=== PATIENT | male | born 1990 ===

== ENCOUNTER 2017-09-06 07:38 | Inpatient (IN) | payer OTHER ==
[2017-09-06] MEDS ORDERED: Sodium Chloride 0.9% 1,000 ML IV STA ×2 (08:21→08:39)
--- NOTE | 2017-09-06 08:28 | ED PDOC ---
Hyperglycemia/Hypoglycemia Time Seen by Provider: 09/06/17 07:46 Chief Complaint (Nursing): High Blood Sugar Chief Complaint (Provider): High blood sugar History Per: Patient History/Exam Limitations: no limitations Onset/Duration Of Symptoms: Days (today) : The patient does not have any of the infectious symptoms listed except for those marked. Additional Complaint(s): Pt. woke up and saw that his blood sugar was high. Took insulin at home and came the ER. Has light-headedness, weakness all over, urinating frequently, nausea, nonbloody vomiting. No chest pain. Dyspnea mild from the nausea/ vomiting. No headaches. Mild abd pain upper. No back pain. No diarrhea. Denies any drugs, alcohol, or any new food/drinks. Past Medical History Reviewed: Nursing Documentation, Vital Signs Vital Signs: Last Vital Signs Temp 97.7 F 09/06/17 07:51 Pulse 105 H 09/06/17 07:51 Resp 20 09/06/17 07:51 BP 125/89 09/06/17 07:51 Pulse Ox 100 09/06/17 07:51 - Medical History PMH: Diabetes Denies: HIV - Surgical History Surgical History: No Surg Hx - Family History Family History: States: Unknown Family Hx - Living Arrangements Living Arrangements: With Family - Immunization History Hx Tetanus Toxoid Vaccination: No Hx Influenza Vaccination: No Hx Pneumococcal Vaccination: No - Home Medications Home Medications: Ambulatory Orders Medication Instructions Recorded Insulin Aspart, Recombinant 15 units SC TID 12/08/14 [Novolog] - Allergies Allergies/Adverse Reactions: Allergies Allergy/AdvReac Type Severity Reaction Status Date / Time No Known Allergies Allergy Verified 12/08/14 19:25 Review of Systems ROS Statement: Except As Marked, All Systems Reviewed And Found Negative Constitutional: Positive for: Weakness Cardiovascular: Positive for: Light Headedness Gastrointestinal: Positive for: Nausea, Vomiting, Abdominal Pain Genitourinary Male: Positive for: Frequency Neurological: Positive for: Weakness, Dizziness Physical Exam - Reviewed Nursing Documentation Reviewed: Yes Vital Signs Reviewed: Yes - Physical Exam Appears: Positive for: Uncomfortable Head Exam: Positive for: ATRAUMATIC, NORMAL INSPECTION, NORMOCEPHALIC Skin: Positive for: Normal Color, Warm, DRY Eye Exam: Positive for: EOMI, Normal appearance, PERRL ENT: Positive for: Normal ENT Inspection Neck: Positive for: Normal, Painless ROM Cardiovascular/Chest: Positive for: Regular Rate, Rhythm Respiratory: Positive for: CNT, Normal Breath Sounds Gastrointestinal/Abdominal: Positive for: Soft, Tenderness (epigastric mild) Back: Positive for: Normal Inspection. Negative for: L CVA Tenderness, R CVA Tenderness Extremity: Positive for: Normal ROM. Negative for: Tenderness, Pedal Edema Neurologic/Psych: Positive for: Alert, labor operator II-XII, Oriented. Negative for: Motor/Sensory Deficits - Laboratory Results Result Diagrams: 09/06/17 08:15 09/06/17 11:33 Interpretation Of Abn Labs: 13.4 wbc, CO2 10; lactate 7.7; 379 glucose; 5.6 k - ECG ECG: Positive for: Interpreted By Me, Viewed By Me ECG Rhythm: Positive for: Normal QRS, Normal ST Segment, Sinus Rhythm O2 Sat by Pulse Oximetry: 100 Pulse Ox Interpretation: Normal - Radiology X-Ray: Read By Radiologist X-Ray Interpretation: No Acute Disease - Progress ED Course And Treament: 841: Has had similar in the past, but much worse. Was in DKA that time. 1120: K mild elevation likely with sugar elevation. Pt. took home insulin prior to coming. With fluids in last poc glucose 146. Will repeat vbg and cmp to reeval pt. 1233: Pt. not sepsis as no source of infection and electrolyte issues from DKA. Will admit ICU and Dr. Peoples aware. Dr. Schuler aware and will admit. Put on D5 1/2 NS and insulin drip. Pt. ph and lactate improving. - Critical Care Total Time (In Min): 30 Documented Critical Care: Time excludes all time spent performint seperately billable procedures Disposition - Clinical Impression Clinical Impression: DKA (diabetic ketoacidoses) - Patient ED Disposition Is Patient to be Admitted: Yes Counseled Patient/Family Regarding: Studies Performed, Diagnosis - Disposition Disposition Time: 12:37 Condition: FAIR - Pt Status Changed To: Hospital Disposition Of: Inpatient - Admit Certification Admit to Inpatient:: After my assessment, the patient will require hospitalization for at least two midnights. This is because of the severity of symptoms shown, intensity of services needed, and/or the medical risk in this patient being treated as an outpatient. - POA Present On Arrival: Poor Glycemic Control
[2017-09-06 08:36] LABS: VENOUS BLOOD GAS BASE EXCESS -20.6 mmol/L (0.0-2.0); VENOUS BLOOD GAS PCO2 29 mmHg (40-60); VENOUS BLOOD GAS PO2 20 mm/Hg (30-55); VENOUS BLOOD PH 7.07 (7.32-7.43)
[2017-09-06 08:42] LABS: BASO % 0.1 % (0.0-2.0); EOS % 0.1 % (0.0-4.0); HEMOGLOBIN 15.1 g/dL (12.0-18.0); LYMPH # 0.8 K/uL (1.0-4.3); LYMPH % 5.7 % (20.0-40.0); MEAN CELL VOLUME 93.8 fl (80.0-94.0); MEAN CORPUSCULAR HEMOGLOBIN 30.8 pg (27.0-31.0); MEAN CORPUSCULAR HGB CONC 32.8 g/dL (33.0-37.0); MEAN PLATELET VOLUME 9.5 fl (7.2-11.7); MONO # 0.5 K/uL (0.0-0.8); MONO % 3.8 % (0.0-10.0); NEUT # 12.1 K/uL (1.8-7.0); NEUT % 90.3 % (50.0-75.0); PLATELET COUNT 292 K/uL (130-400); RBC 4.91 Mil/uL (4.40-5.90); RED CELL DISTRIBUTION WIDTH 14.5 % (11.5-14.5); WHITE BLOOD COUNT 13.4 K/uL (4.8-10.8)
[2017-09-06 09:15] LABS: ALB/GLOB RATIO 1.7 (1.0-2.1); ALBUMIN 5.4 g/dL (3.5-5.0); ALT/SGPT 93 U/L (21-72); AST/SGOT 90 U/L (17-59); BLOOD UREA NITROGEN 18 mg/dl (9-20); CALCIUM 10.1 mg/dL (8.4-10.2); GFR AFRICAN-AMERICAN > 60; GFR NON-AFRICAN AMERICAN > 60; LIPASE 120 U/L (23-300)
--- NOTE | 2017-09-06 09:45 | RAD ---
HISTORY: dyspnea COMPARISON: No prior. FINDINGS: LUNGS: No active pulmonary disease. PLEURA: No significant pleural effusion identified, no pneumothorax apparent. CARDIOVASCULAR: Normal. OSSEOUS STRUCTURES: No significant abnormalities. VISUALIZED UPPER ABDOMEN: Normal. OTHER FINDINGS: None. IMPRESSION: No focal airspace opacity. Please note that chest radiographs have low sensitivity for small pulmonary nodules. If indicated, chest CT should be obtained.
[2017-09-06 10:02] LABS: BANDS 1 % (0-2); LYMPHOCYTE 10 % (20-50); MONOCYTE 1 % (0-10); NEUTROPHIL 87 % (42-75); PLATELET ESTIMATE NORMAL (NORMAL); REACTIVE LYMPHOCYTES 1 % (0-0); TOTAL CELLS COUNTED 100
[2017-09-06] MEDS ORDERED: Sodium Chloride 0.9% 500 ML IV STA (11:33)
[2017-09-06 11:54] LABS: VENOUS BLOOD GAS BASE EXCESS -13.1 mmol/L (0.0-2.0); VENOUS BLOOD GAS PCO2 29 mmHg (40-60); VENOUS BLOOD GAS PO2 44 mm/Hg (30-55); VENOUS BLOOD PH 7.25 (7.32-7.43)
[2017-09-06 12:02] LABS: URINE BILIRUBIN NEGATIVE (NEGATIVE); URINE BLOOD SMALL (NEGATIVE); URINE CLARITY CLEAR (Clear); URINE COLOR YELLOW (YELLOW); URINE GLUCOSE (UA) >=500 mg/dL (Normal); URINE LEUKOCYTE ESTERASE NEG Leu/uL (Negative); URINE PROTEIN 100 mg/dL (NEGATIVE); URINE UROBILINOGEN 0.2-1.0 mg/dL (0.2-1.0)
[2017-09-06 12:09] LABS: ALB/GLOB RATIO 1.2 (1.0-2.1); ALBUMIN 3.9 g/dL (3.5-5.0); ALT/SGPT 82 U/L (21-72); AST/SGOT 71 U/L (17-59); BLOOD UREA NITROGEN 15 mg/dl (9-20); CALCIUM 8.7 mg/dL (8.4-10.2); GFR AFRICAN-AMERICAN > 60; GFR NON-AFRICAN AMERICAN > 60
[2017-09-06] MEDS ORDERED: Dextrose 50% SYRINGE Inj (50 ml) IV PRN (12:16)
[2017-09-06] MEDS ORDERED: Glucagon Recombinant 1 mg Inj IM PRN (12:16)
[2017-09-06] MEDS ORDERED: Insulin Regular 100 UNITS in Sodium Chloride 0.9% 100 ML IV SCH (12:30)
[2017-09-06] MEDS ORDERED: Potassium Ch 20mEq in D5-1/2NS 1,000 ML IV SCH (12:30)
[2017-09-06] MEDS: Potassium Ch 20mEq in D5-1/2NS 1,000 ML IV SCH ×2 (15:00→19:36)
--- NOTE | 2017-09-06 15:08 | CP.CCUPN ---
CCU Subjective - Physician Review Subjective (Free Text): 27 M with PMH DM I, on Robbi 70/30 insulin admitted with c/o nausea, vomiting, generalized weakness and found to be in acute DKA. He states he has been compliant with his insulin regimen and even gave himself a dose of 15 units prior to arrival to ER. He denies any recent illness , fevers, chills, sweats, abdominal pain, CP or SOB. Other vitals and I/O's reviewed. ROS: No other pertinent negs or positives on 10+ system review. Allergies: NKDA Home Meds: Aspart Insulin PMSFH: All other Nursing and physician documentation reviewed to date; no new pertinent info noted relevant to current medical problems. EXAM- HEENT: no icterus, no gaze preference, pupils equal and reactive NECK: No JVD, supple, carotids equal upstroke bilat/no bruits CHEST: clear BS bilaterally, no wheezes audible HEART: regular, normal S1S2, no rubs or murmurs ABD: soft, no distention, no tympany, BS hypoactive EXT: No peripheral/ digital cyanosis, no calf tenderness or palpable cords, distal pulses intact and symmetrical. NEURO: no gross focal motor deficits. SKIN: no rashes, warm and dry. LABS: WBC= 13.4 HGB= 15.1 PLTs= 292K VBG 7.// Lactate = 7.7 Repeated 3 H later: VB.25// Lactate= 6.3 Mu=237 K= 4.9 IF=781 HCO3= 13 BUN/Cr= 15/0.8 BS= 97 CXR: clear lung coon (my interp). IMPRESSION / MAJOR PROBLEMS NOW: 1. DM Type I with DKA PLAN: 1. IVFs already changed to Saline with dextrose substrate; insulin drip, all to remain until anion gap normalizes. Avoid too rapid a correction rate, monitor for any mental status changes. Check repeat BMP, Mg, Phos levels. 2. Check HGB A1c for extent of home BS control. 3. Consider Endocrine eval. CCU Objective - Vital Signs / Intake & Output Vital Signs (Last 4 hours): Vital Signs Temp Pulse Resp BP Pulse Ox 09/06/17 13:05 81 14 99/62 L 100 09/06/17 12:53 97.9 F 84 14 99/62 L 100 09/06/17 12:37 100 09/06/17 12:26 95 H 15 09/06/17 11:19 92 H 15 100/60 100 Intake and Output (Last 8hrs): Intake & Output 09/06/17 09/06/17 09/06/17 06:59 14:59 22:59 Weight 140 lb
[2017-09-07] MEDS: Potassium Ch 20mEq in D5-1/2NS 1,000 ML IV SCH ×2 (00:41→06:33)
[2017-09-07 05:15] LABS: BASO % 0.4 % (0.0-2.0); EOS # 0.2 K/uL (0.0-0.7); EOS % 3.9 % (0.0-4.0); HEMOGLOBIN 12.1 g/dL (12.0-18.0); LYMPH # 2.2 K/uL (1.0-4.3); LYMPH % 36.1 % (20.0-40.0); MEAN CELL VOLUME 91.5 fl (80.0-94.0); MEAN CORPUSCULAR HEMOGLOBIN 30.8 pg (27.0-31.0); MEAN CORPUSCULAR HGB CONC 33.7 g/dL (33.0-37.0); MEAN PLATELET VOLUME 8.9 fl (7.2-11.7); MONO # 0.4 K/uL (0.0-0.8); MONO % 6.4 % (0.0-10.0); NEUT # 3.2 K/uL (1.8-7.0); NEUT % 53.2 % (50.0-75.0); RBC 3.91 Mil/uL (4.40-5.90); RED CELL DISTRIBUTION WIDTH 14.5 % (11.5-14.5)
[2017-09-07 05:21] LABS: BLOOD UREA NITROGEN 10 mg/dl (9-20); CALCIUM 8.4 mg/dL (8.4-10.2); GFR AFRICAN-AMERICAN > 60; GFR NON-AFRICAN AMERICAN > 60
[2017-09-07] MEDS: Pantoprazole 40 mg EC Tab PO SCH (08:34)
--- NOTE | 2017-09-07 08:36 | CARD ---
APPROVED REPORT EKG Measurement Heart [id number] <Conclusion> Normal sinus rhythm Possible Left atrial enlargement Nonspecific ST and T wave abnormality Abnormal ECG
[2017-09-07] MEDS: Insulin Lispro Mix 75/25 100 units/ml (HumaLog) 10ml SC SCH ×2 (09:12→17:10)
[2017-09-08 08:29] VITALS: BP 124/81; PULSE 73; RESP 20; TEMP 97.7; O2SAT 99
--- NOTE | 2017-09-08 08:35 | HP ---
HISTORY OF PRESENT ILLNESS: Mr. Landeros is a 27-year-old male who was admitted to the intensive care unit because of abdominal discomfort, generalized weakness, nausea, vomiting, and diagnosis of diabetic ketoacidosis. He indicated his symptoms started just on the day of admission. He had taken his insulin, 50 units of NovoLog 70/30 and came to the emergency room where he was found to be in ketoacidosis. He was therefore admitted to the intensive care unit on an insulin drip. He has a past medical history of juvenile-onset diabetes mellitus, otherwise unremarkable. FAMILY HISTORY: Nonrevealing. SOCIAL HISTORY: He does not smoke or drink. REVIEW OF SYSTEMS: Essentially unremarkable. PHYSICAL EXAMINATION: GENERAL: The patient is alert and oriented, appears to be much more comfortable this morning. VITAL SIGNS: Remarkable for blood pressure of 100/67, respiratory rate is 16, temperature 97.5 degrees Fahrenheit, and O2 sat 100% on room. SKIN: Shows fair turgor. HEENT: Pupils are equal and reactive to light and accommodation. Mouth shows fair hygiene. JVP flat. LUNGS: Clear. HEART: Regular. No murmurs or gallops. ABDOMEN: Soft, nontender. No organomegaly. EXTREMITIES: Shows no edema or cyanosis. CENTRAL NERVOUS SYSTEM: Exam is grossly intact. LABORATORY DATA: On admission, the patient had a VBG that showed a pH of 7.07. Sodium 143, potassium 4.9, and CO2 of 13. Blood sugar on admission reported by the ER physician noted to be high. IMPRESSION: Diabetic ketoacidosis. PLAN: IV hydration. Insulin therapy. The patient to be transferred to a regular medical floor today and probable discharge home if clinically stable. We will restart insulin today. Natalio Schuler MD
[2017-09-08] MEDS ORDERED: Insulin Lispro (humaLOG) 100 Units/ml Inj SC SCH (09:20)
[2017-09-08] MEDS ORDERED: NOVOLOG INSULIN ASPART SC SCH ×2 (10:15)
[2017-09-08] MEDS: Pantoprazole 40 mg EC Tab PO SCH (10:33)
[2017-09-08] MEDS ORDERED: Insulin Regular 100 units/ml SC SCH (12:00)
[2017-09-08] MEDS ORDERED: INSULIN ASPART RECOMBINANT 15 UNIT SC SCH (13:00)
--- NOTE | 2017-09-08 14:12 | CP.PCM.DIS ---
Provider - Provider Date of Admission: 09/06/17 12:26 Attending physician: Natalio Schuler MD Time Spent in preparation of Discharge (in minutes): 35 Diagnosis - Discharge Diagnosis (1) DKA (diabetic ketoacidoses) Status: Acute (2) DVT prophylaxis Status: Acute (3) Dehydration Status: Acute Hospital Course - Lab Results Lab Results: Micro Results 09/06/17 08:00 Blood-Venous Blood Culture - Preliminary NO GROWTH AFTER 48 HOURS 09/06/17 08:15 Blood-Venous Blood Culture - Preliminary NO GROWTH AFTER 48 HOURS 09/06/17 11:38 Urine,Random Urine Culture - Final No Growth (<1,000 CFU/ML) Most Recent Lab Values WBC 6.0 K/uL (4.8-10.8) D 09/07/17 04:30 RBC 3.91 Mil/uL (4.40-5.90) L 09/07/17 04:30 Hgb 12.1 g/dL (12.0-18.0) D 09/07/17 04:30 Hct 35.7 % (35.0-51.0) 09/07/17 04:30 MCV 91.5 fl (80.0-94.0) D 09/07/17 04:30 MCH 30.8 pg (27.0-31.0) 09/07/17 04:30 MCHC 33.7 g/dL (33.0-37.0) 09/07/17 04:30 RDW 14.5 % (11.5-14.5) 09/07/17 04:30 Plt Count 219 K/uL (130-400) 09/07/17 04:30 MPV 8.9 fl (7.2-11.7) 09/07/17 04:30 Neut % (Auto) 53.2 % (50.0-75.0) 09/07/17 04:30 Lymph % (Auto) 36.1 % (20.0-40.0) 09/07/17 04:30 [place] % (Auto) 6.4 % (0.0-10.0) 09/07/17 04:30 Eos % (Auto) 3.9 % (0.0-4.0) 09/07/17 04:30 Baso % (Auto) 0.4 % (0.0-2.0) 09/07/17 04:30 Neut # (Auto) 3.2 K/uL (1.8-7.0) 09/07/17 04:30 Lymph # (Auto) 2.2 K/uL (1.0-4.3) 09/07/17 04:30 [place] # (Auto) 0.4 K/uL (0.0-0.8) 09/07/17 04:30 Eos # (Auto) 0.2 K/uL (0.0-0.7) 09/07/17 04:30 Baso # (Auto) 0.0 K/uL (0.0-0.2) 09/07/17 04:30 Neutrophils % (Manual) 87 % (42-75) H 09/06/17 08:15 Band Neutrophils % 1 % (0-2) 09/06/17 08:15 Lymphocytes % (Manual) 10 % (20-50) L 09/06/17 08:15 Reactive Lymphs % 1 % (0-0) H 09/06/17 08:15 Monocytes % (Manual) 1 % (0-10) 09/06/17 08:15 Platelet Estimate Normal (NORMAL) 09/06/17 08:15 RBC Morphology Normal (NORMAL) 09/06/17 08:15 pO2 44 mm/Hg (30-55) 09/06/17 11:17 VBG pH 7.25 (7.32-7.43) L 09/06/17 11:17 VBG pCO2 29 mmHg (40-60) L 09/06/17 11:17 VBG HCO3 14.3 mmol/L 09/06/17 11:17 VBG Total CO2 13.6 mmol/L (22-28) L 09/06/17 11:17 VBG O2 Sat (Calc) 83.4 % (40-65) H 09/06/17 11:17 VBG Base Excess -13.1 mmol/L (0.0-2.0) L 09/06/17 11:17 VBG Potassium 4.5 mmol/L (3.6-5.2) 09/06/17 11:17 Sodium 138.0 mmol/L (132-148) 09/06/17 11:17 Chloride 108.0 mmol/L (98-107) H 09/06/17 11:17 Glucose 100 mg/dL (75-110) 09/06/17 11:17 Lactate 6.3 mmol/L (0.7-2.1) H* 09/06/17 11:17 FiO2 21.0 % 09/06/17 11:17 Blood Gas Comments Vb 09/06/17 11:17 Crit Value Called To Sayda castle r.n. 09/06/17 11:17 Crit Value Called By Leticia 09/06/17 11:17 Crit Value Read Back Y 09/06/17 11:17 Blood Gas Notified Time 1154 09/06/17 11:17 Sodium 137 mmol/l (132-148) 09/07/17 04:30 Potassium 3.7 MMOL/L (3.6-5.0) 09/07/17 04:30 Chloride 108 mmol/L (98-107) H 09/07/17 04:30 Carbon Dioxide 24 mmol/L (22-30) 09/07/17 04:30 Anion Gap 9 (10-20) L 09/07/17 04:30 BUN 10 mg/dl (9-20) 09/07/17 04:30 Creatinine 0.7 mg/dl (0.8-1.5) L 09/07/17 04:30 Est GFR ( Amer) > 60 09/07/17 04:30 Est GFR (Non-Af Amer) > 60 09/07/17 04:30 POC Glucose (mg/dL) 231 mg/dL (65-110) H 09/08/17 12:27 Random Glucose 107 mg/dL (75-110) 09/07/17 04:30 Calcium 8.4 mg/dL (8.4-10.2) 09/07/17 04:30 Total Bilirubin 0.8 mg/dl (0.2-1.3) 09/06/17 11:33 AST 71 U/L (17-59) H D 09/06/17 11:33 ALT 82 U/L (21-72) H 09/06/17 11:33 Alkaline Phosphatase 124 U/L (38-126) 09/06/17 11:33 Troponin I < 0.0120 ng/mL (0.00-0.120) 09/06/17 08:15 Total Protein 7.0 G/DL (6.3-8.2) 09/06/17 11:33 Albumin 3.9 g/dL (3.5-5.0) 09/06/17 11:33 Globulin 3.2 gm/dL (2.2-3.9) 09/06/17 11:33 Albumin/Globulin Ratio 1.2 (1.0-2.1) 09/06/17 11:33 Lipase 120 U/L (23-300) 09/06/17 08:15 Venous Blood Potassium 4.5 mmol/L (3.6-5.2) 09/06/17 11:17 Urine Color Yellow (YELLOW) 09/06/17 11:38 Urine Clarity Clear (Clear) 09/06/17 11:38 Urine pH 5.0 (5.0-8.0) 09/06/17 11:38 Ur Specific [place] 1.023 (1.003-1.030) 09/06/17 11:38 Urine Protein 100 mg/dL (NEGATIVE) 09/06/17 11:38 Urine Glucose (UA) >=500 mg/dL (Normal) 09/06/17 11:38 Urine Ketones 80 mg/dL (NEGATIVE) 09/06/17 11:38 Urine Blood Small (NEGATIVE) 09/06/17 11:38 Urine Nitrate Negative (NEGATIVE) 09/06/17 11:38 Urine Bilirubin Negative (NEGATIVE) 09/06/17 11:38 Urine Urobilinogen 0.2-1.0 mg/dL (0.2-1.0) 09/06/17 11:38 Ur Leukocyte Esterase Neg [place]/uL (Negative) 09/06/17 11:38 Urine RBC (Auto) 1 /hpf (0-3) 09/06/17 11:38 Urine Microscopic WBC 1 /hpf (0-5) 09/06/17 11:38 Hyaline Casts 3-5 /hpf (0-2) H 09/06/17 11:38 Alcohol, Quantitative < 10 mg/dl (0-10) 09/06/17 08:15 - Hospital Course Hospital Course: FEELS BETTER NAUSEA RESOLVED SERUM GLUCOSE--231 AFTER INITIATION OF INSULIN THERAPY Discharge Exam - Head Exam Head Exam: ATRAUMATIC, NORMAL INSPECTION, NORMOCEPHALIC - Eye Exam Eye Exam: EOMI, Normal appearance, PERRL Pupil Exam: NORMAL ACCOMODATION, PERRL - GI/Abdominal Exam GI & Abdominal Exam: Normal Bowel Sounds - Rectal Exam Rectal Exam: NORMAL INSPECTION - Neurological Exam Neurological exam: Alert, CN II-XII Intact, Normal Gait, Oriented x3, Reflexes Normal - Psychiatric Exam Psychiatric exam: Normal Affect, Normal Mood - Skin Skin Exam: Dry, Intact, Normal Color, Warm Discharge Plan - Follow Up Plan Condition: FAIR Disposition: HOME/ ROUTINE Patient education suggested?: Yes Instructions: Diabetes Diet , Diabetic Ketoacidosis (DC) Additional Instructions: follow up with your primary MD 1 week Referrals: Donnell Jama MD [Family Provider] -
== END 2017-09-08 14:52 | disposition home or self-care (01) | DRG 295 ==
LOC: H.ER 07:38 → H.ERHOLD 12:26 → H.ICU/CCU 14:45 → H.MEDSURG1 09-07 20:50
PROVIDERS: ADMIT Internal Medicine Pulmonary Disease; ATTEND Internal Medicine Pulmonary Disease
DX: E10.10 Type 1 diabetes mellitus with ketoacidosis without coma (principal); E86.0 Dehydration; Z79.4 Long term (current) use of insulin